=== PATIENT | female | born 1995 | race American Indian/Alaskan Native ===

== ENCOUNTER 2018-11-26 13:24 | Emergency (ER) | payer SELFPAY ==
[2018-11-26 13:33] VITALS: BP 122/79
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
== END 2018-11-26 14:01 | disposition left against medical advice (07) ==
LOC: ED 13:24
DX: Z04.1 Encounter for examination and observation following transport accident (principal); Z53.21 Procedure and treatment not carried out due to patient leaving prior to being seen by health care provider